=== PATIENT | female | born 1950 | race Caucasian/White ===

== ENCOUNTER → 2017-01-26 | Outpatient (CLI) | payer OTHER ==
[~2017-01-26] MED LIST: ALPRAZOLAM 0.0.25 MG PO; AMITRIPTYLINE H25 M2 PO; ASPIRIN81 M2 PO; ATORVASTATIN CA40 MG PO; AUGMENTIN 875-1 EACH PO; CARVEDILOL3.125 MG PO; FLONASE 0.05%50 MCG INH; LISINOPRIL5 MG PO; NITROGLYCERIN0.4 MG SUBLING; NORVASC5 MG PO; PLAVIX 75 MG TA75 M1 PO; PREDNISONE 20 M20 MG PO; PROAIR HFA8.5 GM INH; SYMBICORT160 MCG/4. INH
== END ==
LOC: CAT 14:19
DX: R91.1 Solitary pulmonary nodule (principal)

== ENCOUNTER → 2018-01-03 | Outpatient (CLI) | payer OTHER | LOC: CAT 05:36 | DX: R91.1 Solitary pulmonary nodule (principal); J98.4 Other disorders of lung; J44.9 Chronic obstructive pulmonary disease, unspecified ==

== ENCOUNTER → 2019-01-05 | Outpatient (CLI) | payer OTHER | LOC: CAT 10:09 | DX: J43.2 Centrilobular emphysema (principal); I25.10 Atherosclerotic heart disease of native coronary artery without angina pectoris; I70.0 Atherosclerosis of aorta ==

== ENCOUNTER → 2019-07-10 | Outpatient (CLI) | payer OTHER | LOC: RAD 03:20 | DX: Z12.31 Encounter for screening mammogram for malignant neoplasm of breast (principal) ==

== ENCOUNTER → 2020-09-11 | Outpatient (CLI) | payer OTHER ==
[2020-09-11 16:21] LABS: ABSOLUTE NEUTROPHILS 4.7 thou/uL (1.4-8.2); BASOPHILS 0.8 % (0.0-2.0); HEMATOCRIT 41.6 % (37.0-47.0); HEMOGLOBIN 14.1 gm/dL (12.0-15.0); LYMPHOCYTES 29.1 % (24.0-44.0); MCH 32.5 pg (26.0-34.0); MCHC 33.8 g/dL (28.0-37.0); MCV 96.2 fL (80.0-100.0); MONOCYTES 10.1 % (1.0-8.0); PLATELET COUNT 270 thou/uL (150-400); RBC 4.33 mil/uL (4.20-5.00); RDW 12.5 % (10.5-14.5); WBC 8.1 thou/uL (4.0-11.0)
[2020-09-11 16:42] LABS: CALCIUM 9.9 mg/dL (8.5-10.1); CREATININE 0.9 mg/dL (0.6-1.0); DIRECT BILIRUBIN 0.1 mg/dL (<0.1-0.2); TOTAL BILIRUBIN 0.3 mg/dL (0.2-1.0); TOTAL PROTEIN 6.9 g/dL (6.4-8.2)
--- NOTE | 2020-09-12 07:31 | EKG ---
[facility] [address] [place] [address] ELECTROCARDIOGRAM REPORT Name: CALISTA GERMAN Room #: REG GERONIMO M.R.#: [id number] Admission: 09/11/20 Attend Phys: Pedro Cortez MD Discharge: Date of : 48 Report #: [id number] THIS REPORT FOR: cc: Govind Mcclelland MD, Douglas L. MD Santiago, Patrick MD FACC ~ <ELECTRONICALLY SIGNED> By: José Gutiérrez MD, FACC 09/12/20 0731 [id number] José Gutiérrez MD, FACC /EPI
== END ==
LOC: NEURO 15:29 → CV 15:29
PROVIDERS: ATTEND Otolaryngology Plastic Surgery within the Head & Neck
DX: H61.23 Impacted cerumen, bilateral (principal); H90.3 Sensorineural hearing loss, bilateral; J33.9 Nasal polyp, unspecified; K14.8 Other diseases of tongue; Z72.0 Tobacco use; Z79.01 Long term (current) use of anticoagulants; Z98.890 Other specified postprocedural states

== ENCOUNTER → 2021-01-13 | Outpatient (CLI) | payer OTHER | LOC: SJCVCIMAG 06:23 | PROVIDERS: ATTEND Nuclear Medicine Nuclear Cardiology | DX: I65.23 Occlusion and stenosis of bilateral carotid arteries (principal); J44.9 Chronic obstructive pulmonary disease, unspecified; I25.10 Atherosclerotic heart disease of native coronary artery without angina pectoris; I10 Essential (primary) hypertension; I25.5 Ischemic cardiomyopathy; E78.00 Pure hypercholesterolemia, unspecified; I73.9 Peripheral vascular disease, unspecified ==

== ENCOUNTER → 2021-02-03 | Outpatient (CLI) | payer OTHER | LOC: SJCVCIMAG 07:39 | PROVIDERS: ATTEND Nuclear Medicine Nuclear Cardiology | DX: I65.23 Occlusion and stenosis of bilateral carotid arteries (principal); M79.605 Pain in left leg; M79.604 Pain in right leg; Z95.820 Peripheral vascular angioplasty status with implants and grafts ==

== ENCOUNTER → 2021-02-10 | Outpatient (CLI) | payer OTHER | LOC: SJCVC 13:41 | PROVIDERS: ATTEND Nuclear Medicine Nuclear Cardiology | DX: I73.9 Peripheral vascular disease, unspecified (principal); I77.9 Disorder of arteries and arterioles, unspecified; J44.9 Chronic obstructive pulmonary disease, unspecified; I10 Essential (primary) hypertension; I25.5 Ischemic cardiomyopathy; E78.00 Pure hypercholesterolemia, unspecified; I25.10 Atherosclerotic heart disease of native coronary artery without angina pectoris; E78.5 Hyperlipidemia, unspecified; F17.210 Nicotine dependence, cigarettes, uncomplicated; Z90.710 Acquired absence of both cervix and uterus; Z98.890 Other specified postprocedural states; Z88.8 Allergy status to other drugs, medicaments and biological substances; Z79.899 Other long term (current) drug therapy; Z82.49 Family history of ischemic heart disease and other diseases of the circulatory system ==

== ENCOUNTER → 2021-03-19 | Outpatient (CLI) | payer OTHER | LOC: CAT 03-13 09:42 | PROVIDERS: ATTEND Internal Medicine | DX: Z12.2 Encounter for screening for malignant neoplasm of respiratory organs (principal); R91.8 Other nonspecific abnormal finding of lung field; J43.9 Emphysema, unspecified; Z87.891 Personal history of nicotine dependence ==